=== PATIENT | female | born 1980 | race African-American/Black ===

== ENCOUNTER 2022-07-07 08:37 | Emergency (ER) | payer SELFPAY ==
[2022-07-07 09:35] LABS: Bilirubin Neg (Negative); Blood, Urine 10 (Negative); Clarity Clear (Clear); Glucose, Urine (Dipstick) Normal (Negative); Ketone, Urine Negative (Negative); Leukocyte Negative (Negative); Nitrite Negative (Negative); Protein, Urine (Dipstick) Negative (Neg-Trace); Urobilinogen Normal mg/dL (Less than 2)
[2022-07-07 09:41] LABS: #Basophils 0.1 10x3/uL (0.0-0.2); #Eosinphils 0.1 10x3/uL (0.0-0.5); #Monocytes 0.7 10x3/uL (0.0-1.1); #Neutrophils 3.5 10x3/uL (1.5-8.4); %Eosinophils 2.3 % (0.0-6.0); %Lymphocytes 28.7 % (18.0-47.0); %Monocytes 11.3 % (0.0-10.0); %Neutrophils 56.4 % (40.0-75.0); Hemoglobin 11.8 g/dL (12.0-15.5); Mean Corpuscular HGB CONC 30.9 g/dL (32.0-36.0); Mean Corpuscular Hemoglobin 25.1 pg (27.0-33.0); Mean Corpuscular Volume 81.1 fl (81.6-98.3); Mean Platelet Volume 11.4 fl (7.4-10.4); Platelet Count 283 10x3/uL (150-450); RBC Distribution Width 13.8 % (11.5-14.5); Red Blood Cell (RBC) Count 4.71 10x6/uL (3.90-5.03); White Blood Cell (WBC) Count 6.2 10x3/uL (3.5-10.5)
[2022-07-07 09:44] LABS: Bacteria/HPF Rare-Few HPF (None Seen); RBC/HPF 0-3 HPF (0-3); Squamous Epithelial 0-3 HPF (0-3); WBC/HPF 0-3 HPF (0-3)
[2022-07-07 09:48] LABS: Pregnancy Test - Urine (BHCG) Negative (Negative); Pregu Control Background? CLEAR/WHITE (CLR/WHITE); Pregu Control Bar Appear? YES (CONTROL BAR)
[2022-07-07] MEDS ORDERED: Ondansetron PF 4 MG/2 ML Vial ONE (09:59)
[2022-07-07] MEDS ORDERED: Ketorolac Tromethamine 30 MG/ML VIAL ONE (09:59)
[2022-07-07 10:02] LABS: ALT (SGPT) 19 U/L (8-55); AST (SGOT) 12 U/L (5-34); Albumin 3.9 g/dL (3.5-5.0); Alkaline Phosphatase 61 U/L (40-110); Anion Gap 13 mmol/L (10-20); Bilirubin, Total 0.5 mg/dL (0.2-1.2); Calc. Creatinine Clearance 0 mL/min (70-130); Calcium 9.3 mg/dL (7.8-10.44); Carbon Dioxide 24 mmol/L (22-29); Chloride 107 mmol/L (98-107); Estimated GFR 95; Globulin 3.1 g/dL (2.4-3.5); Glucose 97 mg/dL (70-105); Lipase 27 U/L (8-78); Potassium 3.9 mmol/L (3.5-5.1); Sodium 140 mmol/L (136-145)
[2022-07-07 10:35] LABS: BUN (Urea Nitrogen) 13 mg/dL (7.0-18.7)
[2022-07-07] MEDS ORDERED: Dicyclomine 20 MG/2 ML VIAL IM SCH (11:00)
== END 2022-07-07 12:00 | disposition home or self-care (01) ==
LOC: CSHERS 08:37
DX: A08.4 Viral intestinal infection, unspecified (principal); B34.9 Viral infection, unspecified; I10 Essential (primary) hypertension; F17.290 Nicotine dependence, other tobacco product, uncomplicated
CPT/HCPCS: 80053; 81003; 81015; 81025; 83690; 85025; 93005; 96372; 96374; 96375; J1885; J2405

== ENCOUNTER 2023-02-26 23:00 | Emergency (ER) | payer SELFPAY ==
[2023-02-27] MEDS ORDERED: Dexamethasone 10 MG/ML VIAL ONE (00:16)
== END 2023-02-27 00:30 | disposition home or self-care (01) ==
LOC: CSHERS 23:00
DX: B86 Scabies (principal); I10 Essential (primary) hypertension
CPT/HCPCS: 96372; 99282; J1100

== ENCOUNTER 2023-03-12 14:49 | Emergency (ER) | payer SELFPAY ==
[2023-03-12] MEDS ORDERED: predniSONE 20 MG TAB ONE (16:29)
== END 2023-03-12 16:33 | disposition home or self-care (01) ==
LOC: CSHERS 14:49
DX: L29.9 Pruritus, unspecified (principal); I10 Essential (primary) hypertension
CPT/HCPCS: 99282; J7512

== ENCOUNTER 2024-02-12 11:30 | Emergency (ER) | payer SELFPAY ==
[2024-02-12] MEDS ORDERED: Ketorolac Tromethamine 30 MG (1 mL) VIAL ONE (12:15)
[2024-02-12 12:28] LABS: Influenza A by NAA Not Detected (NotDetected); Influenza B by NAA Not Detected (NotDetected); SARS-CoV-2 NAA Rapid Test DETECTED (NotDetected)
== END 2024-02-12 12:50 | disposition home or self-care (01) ==
LOC: CSHERS 11:30
DX: U07.1 COVID-19 (principal)
CPT/HCPCS: 96372; 99283; J1885

== ENCOUNTER 2024-07-22 08:01 | Emergency (ER) | payer OTHER | END 2024-07-22 09:09 | disposition home or self-care (01) | LOC: CSHERS 08:01 | DX: K21.9 Gastro-esophageal reflux disease without esophagitis (principal); I10 Essential (primary) hypertension; F17.200 Nicotine dependence, unspecified, uncomplicated | CPT/HCPCS: 99283 ==

== ENCOUNTER 2024-08-25 11:33 | Emergency (ER) | payer SELFPAY ==
[2024-08-25] MEDS ORDERED: Ketorolac Tromethamine 30 MG (1 mL) VIAL ONE (11:53)
== END 2024-08-25 12:10 | disposition home or self-care (01) ==
LOC: CSHERS 11:33
DX: S16.1XXA Strain of muscle, fascia and tendon at neck level, initial encounter (principal); S46.812A Strain of other muscles, fascia and tendons at shoulder and upper arm level, left arm, initial encounter; I10 Essential (primary) hypertension; Z55.0 Illiteracy and low-level literacy; F17.210 Nicotine dependence, cigarettes, uncomplicated; V89.2XXA Person injured in unspecified motor-vehicle accident, traffic, initial encounter
CPT/HCPCS: 96372; 99283; J1885

== ENCOUNTER 2024-08-26 08:06 | Emergency (ER) | payer OTHER, SELFPAY ==
[2024-08-26] MEDS ORDERED: Ketorolac Tromethamine 30 MG (1 mL) VIAL ONE (08:45)
[2024-08-26 10:30] LABS: SARS-CoV-2 E Target Negative; SARS-CoV-2 N2 Target Negative; SARS-CoV-2 NAA Rapid Test Not Detected (NotDetected); SARS-CoV-2 RdRP gene Negative
== END 2024-08-26 08:56 | disposition home or self-care (01) ==
LOC: CSHERS 08:06
DX: J32.9 Chronic sinusitis, unspecified (principal); H66.93 Otitis media, unspecified, bilateral; I10 Essential (primary) hypertension
CPT/HCPCS: 96372; 99283; J1885; U0002

== ENCOUNTER 2024-08-31 17:46 | Emergency (ER) | payer OTHER ==
[2024-08-31] MEDS ORDERED: Dexamethasone 4 mg/ml Vial ONE (18:21)
== END 2024-08-31 18:42 | disposition home or self-care (01) ==
LOC: CSHERS 17:46
DX: T78.40XA Allergy, unspecified, initial encounter (principal)
CPT/HCPCS: 96372; 99282; J1100

== ENCOUNTER 2024-10-08 17:28 | Emergency (ER) | payer OTHER | END 2024-10-08 19:11 | disposition home or self-care (01) | LOC: CSHERS 17:28 | DX: R19.7 Diarrhea, unspecified (principal); I10 Essential (primary) hypertension | CPT/HCPCS: 99283 ==

== ENCOUNTER 2025-03-24 08:34 | Emergency (ER) | payer SELFPAY ==
[2025-03-24] MEDS ORDERED: Ketorolac Tromethamine 30 MG (1 mL) VIAL ONE (09:01)
== END 2025-03-24 11:24 | disposition home or self-care (01) ==
LOC: CSHERS 08:34
DX: J02.9 Acute pharyngitis, unspecified (principal); I10 Essential (primary) hypertension; F17.290 Nicotine dependence, other tobacco product, uncomplicated; Z55.6 Problems related to health literacy; Z75.3 Unavailability and inaccessibility of health-care facilities
CPT/HCPCS: 87081; 87428; 87430; 96372; 99283; J1885

== ENCOUNTER 2025-07-19 11:26 | Emergency (ER) | payer SELFPAY ==
[2025-07-19] MEDS ORDERED: Amoxicillin/Potassium Clav 875 MG TAB ONE (12:36)
[2025-07-19] MEDS ORDERED: Ketorolac Tromethamine 30 MG (1 mL) VIAL ONE (12:36)
== END 2025-07-19 13:03 | disposition home or self-care (01) ==
LOC: CSHERS 11:26
DX: J02.8 Acute pharyngitis due to other specified organisms (principal); B96.89 Other specified bacterial agents as the cause of diseases classified elsewhere; I10 Essential (primary) hypertension; F17.210 Nicotine dependence, cigarettes, uncomplicated
CPT/HCPCS: 87081; 87428; 87430; 96372; J1885; J2919

== ENCOUNTER 2025-10-06 21:59 | Emergency (ER) | payer SELFPAY ==
[2025-10-06 22:24] LABS: Glucose, Urine (Dipstick) Normal (Negative); Leukocyte 25 (Negative); Protein, Urine (Dipstick) 15 mg/dl (Neg-Trace); Specific Gravity, Urine 1.015 (1.005-1.030)
[2025-10-06 22:25] LABS: Pregnancy Test - Urine (BHCG) Negative (Negative); Pregu Control Background? CLEAR/WHITE (CLR/WHITE); Pregu Control Bar Appear? YES (CONTROL BAR)
[2025-10-06 22:31] LABS: Bacteria/HPF None Seen HPF (None Seen); CAUTI Indications for Culture Dysuria,urgency,freq; RBC/HPF 0-3 HPF (0-3); WBC/HPF 0-3 HPF (0-3)
[2025-10-06 22:32] LABS: Urine Culture Reflex No No
[2025-10-06 22:48] LABS: #Basophils 0.06 10x3/uL (0.0-0.2); #Eosinophils 0.21 10x3/uL (0.0-0.5); #Monocytes 0.95 10x3/uL (0.0-1.1); #Neutrophils 5.23 10x3/uL (1.5-8.4); %Basophils 0.7 % (0.0-2.0); %Eosinophils 2.4 % (0.0-6.0); %Lymphocytes 26.9 % (18.0-47.0); %Monocytes 10.7 % (0.0-10.0); %Neutrophils 59.0 % (40.0-75.0); Hematocrit 37.6 % (34.9-44.5); Hemoglobin 11.6 g/dL (12.0-15.5); Mean Corpuscular Hemoglobin 24.8 pg (27.0-33.0); Mean Corpuscular Volume 80.3 fL (81.6-98.3); Platelet Count 297 10x3/uL (150-450); Red Blood Cell (RBC) Count 4.68 10x6/uL (3.90-5.03); White Blood Cell (WBC) Count 8.87 10x3/uL (3.5-10.5)
[2025-10-06 23:03] LABS: ALT (SGPT) 18 U/L (Less than 34); AST (SGOT) 13 U/L (11-34); Albumin 3.7 g/dL (3.1-4.5); Alkaline Phosphatase 57 U/L (40-110); Anion Gap 11 mmol/L (10-20); BUN (Urea Nitrogen) 12 mg/dL (7.0-18.7); Bilirubin, Total 0.4 mg/dL (0.3-1.2); Calc. Creatinine Clearance 0 mL/min (70-130); Calcium 8.4 mg/dL (7.8-10.44); Carbon Dioxide 25 mmol/L (22-29); Chloride 109 mmol/L (98-107); Globulin 3.0 g/dL (2.4-3.5); Glucose 96 mg/dL (70-105); Potassium 4.1 mmol/L (3.5-5.1); Sodium 141 mmol/L (136-145)
[2025-10-06 23:09] LABS: Troponin I Less than 0.010 ng/mL (< 0.028)
== END 2025-10-06 23:56 | disposition home or self-care (01) ==
LOC: CSHERS 21:59
DX: I10 Essential (primary) hypertension (principal); R60.0 Localized edema; F17.290 Nicotine dependence, other tobacco product, uncomplicated
CPT/HCPCS: 36415; 80053; 81001; 81025; 83880; 84484; 85025; 99283

== ENCOUNTER 2025-11-20 21:54 | Emergency (ER) | payer SELFPAY ==
[2025-11-21] MEDS ORDERED: HYDROcodone/Acetaminophen 5/325 mg Tablet ONE (00:17)
[2025-11-21 00:18] LABS: #Basophils 0.03 10x3/uL (0.0-0.2); #Eosinophils 0.16 10x3/uL (0.0-0.5); #Monocytes 0.61 10x3/uL (0.0-1.1); #Neutrophils 4.33 10x3/uL (1.5-8.4); %Basophils 0.4 % (0.0-2.0); %Eosinophils 2.3 % (0.0-6.0); %Lymphocytes 26.7 % (18.0-47.0); %Monocytes 8.7 % (0.0-10.0); %Neutrophils 61.8 % (40.0-75.0); Hematocrit 35.7 % (34.9-44.5); Hemoglobin 10.8 g/dL (12.0-15.5); Mean Corpuscular Hemoglobin 24.8 pg (27.0-33.0); Mean Corpuscular Volume 81.9 fL (81.6-98.3); Platelet Count 312 10x3/uL (150-450); Red Blood Cell (RBC) Count 4.36 10x6/uL (3.90-5.03); White Blood Cell (WBC) Count 7.01 10x3/uL (3.5-10.5)
[2025-11-21 00:36] LABS: ALT (SGPT) 14 U/L (Less than 34); AST (SGOT) 17 U/L (11-34); Albumin 3.5 g/dL (3.1-4.5); Alkaline Phosphatase 52 U/L (40-110); Anion Gap 10 mmol/L (10-20); BUN (Urea Nitrogen) 9 mg/dL (7.0-18.7); Bilirubin, Total 0.6 mg/dL (0.3-1.2); Calc. Creatinine Clearance 0 mL/min (70-130); Calcium 8.7 mg/dL (7.8-10.44); Carbon Dioxide 27 mmol/L (22-29); Chloride 108 mmol/L (98-107); Globulin 3.1 g/dL (2.4-3.5); Glucose 97 mg/dL (70-105); Potassium 4.4 mmol/L (3.5-5.1); Sodium 141 mmol/L (136-145)
== END 2025-11-21 02:11 | disposition home or self-care (01) ==
LOC: CSHERS 21:54
DX: M71.21 Synovial cyst of popliteal space [Baker], right knee (principal); I10 Essential (primary) hypertension; F17.290 Nicotine dependence, other tobacco product, uncomplicated
CPT/HCPCS: 36415; 80053; 83880; 85025